=== PATIENT | female | born 1975 | race Caucasian/White ===

== ENCOUNTER 2019-04-17 08:54 | Day surgery (SDC) | payer OTHER ==
[~2019-04-17] VITALS: Ht 170.2 cm; Wt 91.8 kg
[~2019-04-17 08:54] MED LIST: OMEPRAZOLE
[2019-04-17 09:49] VITALS: Ht 170.2 cm; Wt 91.8 kg
[2019-04-17] MEDS ORDERED: PROPOFOL 20 ML ONE ×2 (10:02→11:01)
[2019-04-17] MEDS ORDERED: FENTAnyl 50 MCG/ML VIAL ONE (10:02)
[2019-04-17 10:15] VITALS: BP 125/71; PULSE 73; RESP 18
[2019-04-17 11:00] VITALS: BP 101/62; PULSE 78; RESP 21
[2019-04-17 11:23] VITALS: BP 112/59; PULSE 68; RESP 21
== END 2019-04-17 16:02 | disposition home or self-care (01) ==
LOC: GIL 08:54
PROVIDERS: ATTEND Internal Medicine Gastroenterology
DX: D12.5 Benign neoplasm of sigmoid colon (principal); K64.8 Other hemorrhoids; K29.50 Unspecified chronic gastritis without bleeding; D12.2 Benign neoplasm of ascending colon
CPT/HCPCS: 43239; 45380; 45385; 84703; 88305; 88312; J3010; Z7610